=== PATIENT | male | born 1960 | race Caucasian/White ===

== ENCOUNTER → 2021-07-14 | Outpatient (CLI) | payer BC | LOC: CT 10:49 | DX: D38.5 Neoplasm of uncertain behavior of other respiratory organs (principal); J34.2 Deviated nasal septum | CPT/HCPCS: 70487; Q9967 ==

== ENCOUNTER → 2021-08-20 | Day surgery (SDC) | payer BC ==
[~2021-08-20] MED LIST: FLOMAX 0.4 MG0.4 MG PO; NORVASC5 MG PO; PROSCAR5 MG PO; XYZAL5 MG PO
== END | disposition home or self-care (01) ==
LOC: OR 07:56
DX: L98.0 Pyogenic granuloma (principal); D14.0 Benign neoplasm of middle ear, nasal cavity and accessory sinuses; Z88.1 Allergy status to other antibiotic agents; Z20.822 Contact with and (suspected) exposure to COVID-19; I10 Essential (primary) hypertension
CPT/HCPCS: 93005; J0690; J1100; J2001; J2250; J2405; J2704; J3010; J7030; J7120